=== PATIENT | female | born 1965 | race African-American/Black ===

== ENCOUNTER 2018-05-07 10:48 | Outpatient (CLI) | payer OTHER ==
[~2018-05-07 10:48] MED LIST: ISOVUE-370 76%-LOCM 1 ML ONE
== END 2018-05-07 10:49 | disposition home or self-care (01) ==
LOC: BICCT 10:48
PROVIDERS: ATTEND Internal Medicine Gastroenterology
DX: K58.9 Irritable bowel syndrome, unspecified (principal); R11.2 Nausea with vomiting, unspecified
CPT/HCPCS: 74177

== ENCOUNTER 2021-04-02 14:21 | Outpatient (CLI) | payer BC | END 2021-04-02 14:22 | disposition home or self-care (01) | LOC: BICULT 14:21 | PROVIDERS: ATTEND Urology | DX: R33.9 Retention of urine, unspecified (principal) | CPT/HCPCS: 76770 ==

== ENCOUNTER 2023-11-30 13:09 | Outpatient (CLI) | payer OTHER | END 2023-11-30 13:10 | disposition home or self-care (01) | LOC: BICCT 13:09 | PROVIDERS: ATTEND Urology | DX: R31.9 Hematuria, unspecified (principal); R39.14 Feeling of incomplete bladder emptying | CPT/HCPCS: 74176 ==

== ENCOUNTER 2024-07-13 09:21 | Outpatient (CLI) | payer OTHER ==
[2024-07-13] MEDS ORDERED: Magnevist 469MG/ML 20 ML VIAL ONE (11:15)
== END 2024-07-13 09:22 | disposition home or self-care (01) ==
LOC: MRI 09:21
PROVIDERS: ATTEND Physician Assistant
DX: M25.562 Pain in left knee (principal); M22.42 Chondromalacia patellae, left knee; S83.242A Other tear of medial meniscus, current injury, left knee, initial encounter; R93.7 Abnormal findings on diagnostic imaging of other parts of musculoskeletal system

== ENCOUNTER 2025-08-29 10:22 | Outpatient (CLI) | payer BC | END 2025-08-29 10:23 | disposition home or self-care (01) | LOC: ULT 10:22 | PROVIDERS: ATTEND Internal Medicine Nephrology | DX: I12.9 Hypertensive chronic kidney disease with stage 1 through stage 4 chronic kidney disease, or unspecified chronic kidney disease (principal); N18.30 Chronic kidney disease, stage 3 unspecified; N28.89 Other specified disorders of kidney and ureter | CPT/HCPCS: 76770; 93975 ==